=== PATIENT | female | born 1950 | race Caucasian/White ===

== ENCOUNTER → 2018-05-15 | Outpatient (CLI) | payer MEDICARE, BC | LOC: COL.RAD 05-13 10:00 | DX: I62.00 Nontraumatic subdural hemorrhage, unspecified (principal) ==

== ENCOUNTER 2018-05-30 09:30 | Outpatient (RCR) | payer MEDICARE, BC | END 2018-07-02 10:43 | disposition home or self-care (01) | LOC: MKS.ESL.PT 09:30 | DX: S06.5X0D Traumatic subdural hemorrhage without loss of consciousness, subsequent encounter (principal); W10.8XXD Fall (on) (from) other stairs and steps, subsequent encounter | CPT/HCPCS: G8978-GP; G8979-GP ==

== ENCOUNTER → 2020-06-23 | Outpatient (CLI) | payer MEDICARE, BC | LOC: MC.RAD 10:38 | DX: Z12.31 Encounter for screening mammogram for malignant neoplasm of breast (principal); N64.9 Disorder of breast, unspecified ==

== ENCOUNTER → 2022-07-19 | Outpatient (CLI) | payer MEDICARE, BC | LOC: MC.RAD 10:28 | DX: Z12.31 Encounter for screening mammogram for malignant neoplasm of breast (principal) ==